=== PATIENT | female | born 1965 | race Caucasian/White ===

== ENCOUNTER → 2024-06-01 | Day surgery (SDC) | payer OTHER ==
[~2024-06-01] MED LIST: AMLODIPINE BESY10 MG PO; BENICAR20 MG PO; BIOTIN PLUS 5,1 EACH PO; FENTANYL CITRATE/PF 100MCG/2 ML INJ ONE; KLONOPIN0.5 MG PO; METAFOLBIC TAB1 EACH PO; METFORMIN HCL500 MG PO; MIDAZOLAM HCL 2 MG/2 ML VIAL ONE; OMEGA 3 1,0001 EACH PO; OZEMPIC2 MG/0.75 SC; PROPOFOL IV EMULSION 10 MG/ML 20 ML VIAL ONE; VIT B12 PO
[2024-06-01] MEDS: LACTATED RINGER'S 1,000 ML ONE (13:38)
[2024-06-01 16:10] VITALS: BP 130/83; PULSE 70; RESP 17; O2SAT 96
== END | disposition home or self-care (01) ==
LOC: OR 13:07
PROVIDERS: ATTEND Internal Medicine Gastroenterology
DX: Z12.11 Encounter for screening for malignant neoplasm of colon (principal); D12.2 Benign neoplasm of ascending colon; K57.30 Diverticulosis of large intestine without perforation or abscess without bleeding; K64.8 Other hemorrhoids; I10 Essential (primary) hypertension; E78.5 Hyperlipidemia, unspecified; E11.9 Type 2 diabetes mellitus without complications; M06.9 Rheumatoid arthritis, unspecified; M19.90 Unspecified osteoarthritis, unspecified site; F41.9 Anxiety disorder, unspecified; Z88.8 Allergy status to other drugs, medicaments and biological substances; Z01.810 Encounter for preprocedural cardiovascular examination; Z79.85 Long-term (current) use of injectable non-insulin antidiabetic drugs; Z79.84 Long term (current) use of oral hypoglycemic drugs; Z79.899 Other long term (current) drug therapy; Z85.528 Personal history of other malignant neoplasm of kidney
CPT/HCPCS: 36415; 45380; 45381; 45385; 82948; 93005; J2250; J2704; J3010; J7121